=== PATIENT | female | born 1985 | race Caucasian/White ===

== ENCOUNTER 2023-01-24 06:57 | Outpatient (OUT) | payer BC, SELFPAY ==
--- NOTE | 2023-01-24 07:47 | ECG_ITS ---
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
[2023-01-24 09:20] LABS: Basophils Absolute Auto 0.1 10^3/uL (0.0-0.1); Basophils Percent Auto 0.7 % (0.2-2.0); Eosinophils Absolute Auto 0.2 10^3/uL (0.0-0.7); Eosinophils Percent Auto 1.8 % (0.9-7.0); Hematocrit 43.2 % (36.0-48.0); Hemoglobin 14.7 g/dL (12.0-16.0); Immature Granulocytes Abs Auto 0.05 10^3/uL (0.00-0.03); Immature Granulocytes Pct Auto 0.5 % (0.0-0.5); Lymphocytes Absolute Auto 3.6 10^3/uL (1.2-3.8); Lymphocytes Percent Auto 37.4 % (20.5-60.0); Mean Corpuscular Hemoglobin 31.5 pg (26.7-34.0); Mean Corpuscular Volume 92.7 fL (81.0-99.0); Mean Platelet Volume 9.9 fL (9.5-13.5); Monocytes Absolute Auto 0.7 10^3/uL (0.3-0.8); Monocytes Percent Auto 6.8 % (1.7-12.0); Neutrophils Absolute Auto 5.1 10^3/uL (1.4-6.5); Neutrophils Percent Auto 52.8 % (43.0-75.0); Platelet Count 290 10^3/uL (150-450); Red Blood Count 4.66 10^6/uL (4.20-5.40); Red Cell Distribution Width 12.9 % (11.0-15.0); White Blood Count 9.7 10^3/uL (4.0-11.0)
[2023-01-24 10:20] LABS: Anion Gap 10.2; BUN Creatinine Ratio 15.5; Calcium 9.5 mg/dL (8.5-10.1); Carbon Dioxide 28.5 mmol/L (21.0-32.0); Chloride 102 mmol/L (98-107); Estimated GFR (African America >60 (>=60); Estimated GFR (Non-African Ame >60 (>=60); Glucose 86 mg/dL (74-106); Potassium 3.7 mmol/L (3.5-5.1); Sodium 137 mmol/L (136-145)
== END 2023-01-24 06:58 | disposition home or self-care (01) ==
LOC: PST 07:00
PROVIDERS: PCP Family Medicine; Visit Provider Orthopaedic Surgery
DX: Z01.818 Encounter for other preprocedural examination (principal); Z01.812 Encounter for preprocedural laboratory examination; Z01.810 Encounter for preprocedural cardiovascular examination; S83.231A Complex tear of medial meniscus, current injury, right knee, initial encounter
CPT/HCPCS: 80048; 85025; 93005

== ENCOUNTER 2023-01-29 08:08 | Day surgery (SDC) | payer OTHER, BC, SELFPAY ==
[2023-01-24 08:43] VITALS: BP 128/85; PULSE 70; RESP 16; TEMP 36.4; O2SAT 96; BMI 45.3
[2023-01-29] VITALS (9 sets, daily range): BP systolic 137–165; BP diastolic 71–84; PULSE 58–67; RESP 13–20; TEMP 36.6; O2SAT 95–98; BMI 45.2
[2023-01-29] MEDS: LACTATED RINGER'S SOLUTION 1,000 ML 50 ML IV (08:42)
[2023-01-29 08:53] LABS: HCG Qualitative NEGATIVE (NEGATIVE)
[2023-01-29] MEDS: LIDOCAINE HCL 1%-EPINEPHRINE 1:100,000 20 ML MDV INJ (10:51)
[2023-01-29] MEDS: BUPIVACAINE HCL 0.5% PF 50 MG/10 ML VIAL 20 ML INJ (10:51)
[2023-01-29] MEDS: KETOROLAC TROMETHAMINE 30 MG/ML VIAL IVP (11:42)
--- NOTE | 2023-01-29 11:43 | P.ORPRC_ITS ---
Procedure Note Date of procedure: 01/29/23 Pre-op diagnosis: Right knee medial meniscus tear Procedure: After informed consent was obtained the patient brought to the operating room where a general anesthetic was administered. Exam under anesthesia the right knee revealed full range of motion and no instability. The right leg was prepped and draped in the usual sterile fashion. Diagnostic arthroscopy was performed through standard anterior medial and anterolateral arthroscopy portal s. Findings in the patellofemoral compartment included intact articular cartilage of the trochlear groove. Patella had focal grade I and II chondromalacia of the inferior pole of the patella without unstable articular cartilage flaps. Medial compartment there is a posterior horn medial meniscus tear which was debrided with arthroscopic biters and shaver back to stable edge. A 40% meniscectomy was performed. There was diffuse grade 2 and focal grade III chondromalacia of the medial femoral condyle with unstable articular cartilage flaps which was debrided with the arthroscopic shaver back to stable edge. In the notch the ACL and PCL were intact. In the lateral compartment the lateral meniscus was intact. Diffuse grade I and II chondromalacia lateral tibial plateau. Lateral femoral condyle articular cartilage was intact. Knee joint was drained of arthroscopy fluid. Portals were closed with absorbable suture. Joint was infiltrated with 20 mL 0.5% Marcaine plain and 10 mL 1% Xylocaine with epinephrine. Steri-Strips and a sterile dressing were placed. Patient was awakened and brought to the recovery room in stable condition. There were no intraoperative or immediate postoperative complications. Anesthesia: GETA (General LMA) Surgeon: Clint Gore Estimated blood loss (mL): 10 Pathology: none sent Condition: stable Disposition: PACU
== END 2023-01-29 12:20 | disposition home or self-care (01) ==
PROVIDERS: PCP Family Medicine; Visit Provider Orthopaedic Surgery
PROC: (CPT 29881; principal; 2023-01-29 09:30)
DX: S83.231A Complex tear of medial meniscus, current injury, right knee, initial encounter (principal); M22.41 Chondromalacia patellae, right knee; F17.210 Nicotine dependence, cigarettes, uncomplicated; I10 Essential (primary) hypertension; F32.A Depression, unspecified; F41.9 Anxiety disorder, unspecified; Z79.899 Other long term (current) drug therapy; Z79.890 Hormone replacement therapy; E66.01 Morbid (severe) obesity due to excess calories; Z68.42 Body mass index [BMI] 45.0-49.9, adult
CPT/HCPCS: 29881; 36415; 84703; J2704

== ENCOUNTER 2023-04-09 11:19 | Outpatient (OUT) | payer BC, SELFPAY ==
--- NOTE | 2023-04-09 11:30 | XR_ITS ---
The [address] [address] Patient Name: ESTRELLITA DEL CID MRN: [id number] date: 1985 Sex: F Assigned Patient Location: [facility] Current Patient Location: [facility] Accession/Order Number: [id number] Exam Date: 04/09/2023 11:39 Report Date: 04/09/2023 14:25 At the request of: ANDREW CHAVEZ Procedure: XR knee LT 2V EXAM: XR knee LT 2V HISTORY: Left Knee Pain COMPARISON: This study was compared to the prior x-ray dated 12/06/2015 The alignment is anatomical. There is no acute fracture or dislocation. Moderate tricompartmental degenerative changes of the left knee are noted. No significant soft tissue abnormality is noted. XR/XR knee LT 2V IMPRESSION: Moderate tricompartmental degenerative changes of the left knee. Electronically authenticated by: OSCAR FOUNTAIN Date: 04/09/2023 14:25
== END 2023-04-09 11:20 | disposition home or self-care (01) ==
LOC: RAD 11:22
PROVIDERS: PCP Family Medicine; Visit Provider Orthopaedic Surgery
DX: M25.562 Pain in left knee (principal)
CPT/HCPCS: 73560

== ENCOUNTER 2023-04-16 11:10 | Outpatient (OUT) | payer BC, SELFPAY ==
--- NOTE | 2023-04-16 11:15 | XR_ITS ---
The [address] [address] Patient Name: ESTRELLITA DEL CID MRN: [id number] date: 1985 Sex: F Assigned Patient Location: [facility] Current Patient Location: [facility] Accession/Order Number: [id number] Exam Date: 04/16/2023 11:45 Report Date: 04/16/2023 12:12 At the request of: ANDREW CHAVEZ Procedure: XR knee RT 4V EXAM: XR knee RT 4V HISTORY: Acute Pain Of Left Knee COMPARISON: None. TECHNIQUE: 4 views FINDINGS: Cortical irregularity of the lateral tibial plateau. Moderate degenerative change of the knee. Mild soft tissue swelling. XR/XR knee RT 4V IMPRESSION: Probable nondisplaced fracture of the lateral tibial plateau. Electronically authenticated by: JAIRON STARKEY Date: 04/16/2023 12:12
--- NOTE | 2023-04-16 14:50 | XR_ITS ---
The [address] [address] Patient Name: ESTRELLITA DEL CID MRN: [id number] date: 1985 Sex: F Assigned Patient Location: [facility] Current Patient Location: [facility] Accession/Order Number: [id number] Exam Date: 04/16/2023 14:51 Report Date: 04/16/2023 11:12 At the request of: ANDREW CHAVEZ Procedure: XR knee LT 4V EXAM: XR knee RT 4V HISTORY: Acute Pain Of Left Knee COMPARISON: None. TECHNIQUE: 4 views FINDINGS: Cortical irregularity of the lateral tibial plateau. Moderate degenerative change of the knee. Mild soft tissue swelling. XR/XR knee LT 4V IMPRESSION: Probable nondisplaced fracture of the lateral tibial plateau. Electronically authenticated by: JAIRON STARKEY Date: 04/16/2023 11:12
== END 2023-04-16 11:11 | disposition home or self-care (01) ==
LOC: RAD 11:10
PROVIDERS: PCP Family Medicine; Visit Provider Orthopaedic Surgery
DX: M25.562 Pain in left knee (principal)
CPT/HCPCS: 73564

== ENCOUNTER 2023-05-29 15:01 | Outpatient (OUT) | payer BC, SELFPAY ==
--- NOTE | 2023-05-29 15:12 | MR_ITS ---
[address] [address] Patient Name: ESTRELLITA DEL CID MRN: [id number] date: 1985 Sex: F Assigned Patient Location: MRI Current Patient Location: Accession/Order Number: [id number] Exam Date: 05/29/2023 15:20 Report Date: 05/30/2023 01:18 At the request of: ANDREW CHAVEZ Procedure: MR knee LT wo con EXAMINATION: MR knee LT wo con HISTORY: Left Knee Pain M25.562 ; no known injury COMPARISON: XR knee left 04/16/2023 TECHNIQUE: A complete multi-planar MRI was performed. FINDINGS: MEDIAL COMPARTMENT MEDIAL MENISCUS: Vertical tear, likely maceration of the posterior junction. CARTILAGE: Mild thinning; no visible defect. BONES: Large periarticular degenerative osteophytes. No fracture or marrow edema. MCL AND MEDIAL CAPSULE: Grade I sprain of the medial collateral ligament. LATERAL COMPARTMENT LATERAL MENISCUS: Evidence of myxoid degeneration without visible tear. CARTILAGE: Mild thinning; no visible defect. BONES: Large periarticular degenerative osteophytes. No fracture or marrow edema. LCL/POSTEROLAT COMPLEX: Normal lateral collateral ligament, fascicles, lateral capsule and ligaments. ANTERIOR COMPARTMENT PATELLA: Prominent periarticular degenerative osteophytes. No fracture. CARTILAGE: Moderate thinning with focal defects; no subchondral edema. TENDONS: Normal. EFFUSION: No joint effusion or loose bodies. ACL: Normal appearing ligament. PCL: Normal appearing ligament. MENISCOFEMORAL: Normal meniscofemoral ligaments. OTHER: Negative. MR/MR knee LT wo con IMPRESSION: 1. Medial meniscus posterior horn tear/maceration. 2. Mild strain medial collateral ligament. 3. Cartilage thinning throughout kidney; greatest involving the patella (grade III chondromalacia). 4. Tricompartmental prominent periarticular degenerative osteophytes. 5. No fracture with specific attention to the tibial plateau. Electronically authenticated by: ANDREW ZAIDI Date: 05/30/2023 01:18
== END 2023-05-29 15:02 | disposition home or self-care (01) ==
PROVIDERS: PCP Family Medicine; Visit Provider Orthopaedic Surgery
DX: M25.562 Pain in left knee (principal); S83.242A Other tear of medial meniscus, current injury, left knee, initial encounter
CPT/HCPCS: 73721

== ENCOUNTER 2024-01-04 16:14 | Outpatient (OUT) | payer BC, SELFPAY ==
[2024-01-04 17:01] LABS: Estimated Average Glucose 111 mg/dL; Glycohemoglobin A1C 5.5 % (4.5-6.2)
== END 2024-01-04 16:15 | disposition home or self-care (01) ==
LOC: LAB 16:18
PROVIDERS: PCP Family Medicine
DX: Z01.810 Encounter for preprocedural cardiovascular examination (principal); Z01.812 Encounter for preprocedural laboratory examination; R73.03 Prediabetes
CPT/HCPCS: 36415; 83036

== ENCOUNTER 2024-01-16 14:02 | Outpatient (OUT) | payer BC, SELFPAY ==
--- OUTSIDE RECORDS SUMMARY | 2024-01-16 14:07 | XMS_ITS | CCD ---
Author Organization [facility] Care Team Providers Care Community Service Technician Name Role Phone ANIKA PINO Attending Unavailable ANIKA PINO Consulting Unavailable ANIKA PINO Admitting Unavailable DR MASSIEL OSCAR Primary Care Unavailable MD Massiel Dodd Primary Care Pr ovider DO Jordy Wells Attending Provider [phone] Jordy Wells Attending Unavailable Jordy Wells Admitting Unavailable Massiel Dodd Primary Care Un available NAOMI JOE Referring Unavailable MASSIEL OSCAR Primary Care Unavailable NAOMI JOE Referring Unavailable MASSIEL OSCAR Primary Care Unavailable NAOMI JOE Referring Unavailable MASSIEL OSCAR Primary Care Unavailable ANGEL ARAIZA Attending Unavailable ANGEL ARAIZA Referring Unavailable ANGEL ARAIZA Attending Unavailable ANGEL ARAIZA Referring Unavailable ANGEL ARAIZA Referring Unavailable ANGEL ARAIZA Referring Unavailable ANGEL ARAIZA Attending Unavailable ANGEL ARAIZA Attending Unavailable JORDY WELLS Referring Unavailable MASSIEL OSCAR Attending Unavailable NAOMI JOE Referring Unavailable Medications Current Medications Medication Drug Class(es) Dates Sig (Normalized) Sig (Original) atorvastatin 10 mg oral tablet (2 sources) HMG-CoA Reductase Inhibitor Start: 11-26-19 24 take 10 mg by mouth once daily Atorvastatin Active 10 MG PO Daily November 26, 2023 12:00am hydroCHLOROthiazide 25 mg oral tablet (2 sources) Thiazide Diuretic Start: 11-26-19 24 take 25 mg by mouth once daily Hydrochlorothiazide Active 25 MG PO Daily November 26, 2023 12:00am levothyroxine sodium 0.088 mg oral tablet (2 sources) l-Thyroxine Start: 11-26-19 take 1 tablet by mouth once daily Levothyroxine (Synthroid) 88 mcg tablet Active 88 MCG PO Daily November 26, 2023 12:00am metoprolol tartrate 100 mg oral tablet (2 sources) beta-Adrenergic Ruthie Start: 11-26-19 take 100 mg by mouth twice daily Metoprolol Tartrate Active 100 MG PO Twice daily November 26, 2023 12:00am NIFEdipine 30 mg oral tablet (2 sources) Dihydropyridine Calcium Channel Ruthie Start: 11-26-19 24 Nifedipine Active 30 MG PO November 26, 2023 12:00am 24 hr oxybutynin chloride 10 mg extended release oral tablet (2 sources) Cholinergic Muscarinic Antagonist Start: 11-26-19 Oxybutynin Chloride Active MG PO November 26, 2023 12:00am Semaglutide (Weight Loss) (2 sources) Start: 11-26-19 inject 1 mg by subcutaneous injection every week Semaglutide (Weight Loss) (Parth) 0.25 mg/0.5 mL pen injector Active MG SUBCUT every week November 26, 2023 12:00am sertraline 100 mg oral tablet (2 sources) Serotonin Reuptake Inhibitor Start: 11-26-19 take 100 mg by mouth once daily Sertraline Active 100 MG PO Daily November 26, 2023 12:00am Problems Active Problems Problem Classification Problem Date Documented Da te Episodic/Chronic Disorders of lipid metabolism (2 sources) Hyperlipidemia; Translations: [Hyperlipidemia, unspecified] 11-26-2023 Chronic Essential hypertension (2 sources) Hypertensive disorder; Translations: [Essential (primary) hypertension] 11-26-2023 Chronic Headache; including migraine (1 source) Headache; including migraine; Translations: [HEADACHE UNSPECIFIED] Onset: 06-14-2021 Mood disorders (2 sources) Depressive disorder; Translations: [Depression] 11-26-2023 Chronic Osteoarthritis (2 sources) Unilateral primary osteoarthritis, right knee; Translations: [Unilateral primary osteoarthritis, left knee] Onset: 10-15-2023 Chronic Other and unspecified benign neoplasm (2 sources) Hemangioma of liver; Translations: [Hemangioma of intra-abdominal structures] 11-26-2023 Episodic Other and unspecified benign neoplasm (1 source) Hemangioma of intra-abdominal structures; Translations: [Hemangioma of intra-abdominal structures] 11-26-2023 Episodic Other liver diseases (2 sources) Lesion of liver; Translations: [Liver disease, unspecified] 11-26-2023 Chronic Other liver diseases (2 sources) Steatosis of liver; Translations: [Fatty (change of) liver, not elsewhere classified] 11-26-2023 Chronic Other liver diseases (2 sources) Fatty (change of) liver, not elsewhere classified; Translations: [Other chronic nonalcoholic liver disease] Onset: 11-26-2023 11-26-2023 Chronic Other liver diseases (1 source) Elevated liver enzymes level; Translations: [Abnormal levels of other serum enzymes] 11-26-2023 Episodic Other liver diseases (1 source) Abnormal levels of other serum enzymes; Translations: [Other nonspecific abnormal serum enzyme levels] 11-26-2023 Episodic Other lower respiratory disease (1 source) Shortness of breath; Translations: [SHORTNESS OF BREATH] Onset: 06-14-2021 Episodic Other non-traumatic joint disorders (1 source) Pain in right knee; Translations: [Pain in right knee] Onset: 01-07-2024 Episodic Other non-traumatic joint disorders (1 source) Pain in left knee; Translations: [Pain in left knee] Onset: 10-15-2023 Episodic Thyroid disorders (2 sources) Hypothyroidism; Translations: [Hypothyroidism, unspecified] 11-26-2023 Chronic Unclassified (3 sources) CONTACT W/AND (SUSP) EXPOS COVID-19; Translations: [CONTACT W/AND (SUSP) EXPOS COVID-19] Onset: 06-14-2021 Unclassified (1 source) COUGH, UNSPECIFIED; Translations: [COUGH, UNSPECIFIED] Onset: 06-14-2021 Past or Other Problems Problem Classification Problem Date Documented Da te Episodic/Chronic Unclassified (1 source) CONTACT W/AND (SUSP) EXPOS COVID-19; Translations: [CONTACT W/AND (SUSP) EXPOS COVID-19] Onset: 06-09-2021 Results Test Name Value Interpretation Reference Range Facility XR CHEST 2 VIEWSon 4 XR CHEST 2 VIEWS TITLE OF EXAM: XR - CHEST 2 VIEWS REASON FOR EXAM: Pre-op, no current complaints TECHNIQUE: 2 radiographs of the chest. COMPARISON: None FINDINGS: Normal lung expansion. No diffuse or focal pulmonary abnormality. No significant effusion or pneumothorax. The cardiomediastinal silhouette is normal. No acute osseous or upper abdominal abnormality. IMPRESSION: No radiographically apparent cardiopulmonary abnormality. DICTATED ON: 01/10/2024 1:36 PM This report has been electronically signed in approved by the interpreting radiologist. Electronically Signed Leeroy Lovelace M.D. 2024-01-10 13:36:22 Normal Not Available MR ABDOMEN W AND WO CONTRAST on 12-28-2023 MR ABDOMEN W AND WO CONTRAST EXAMINATION: MR ABDOMEN W AND WO CONTRAST HISTORY: Hemangioma of intra-abdominal structures. COMPARISON: MRI of the liver September 26, 2023 TECHNIQUE: Multiplanar multisequence MRI of the abdomen was performed without and with contrast FINDINGS: Again identified is is loss of signal of the liver on in/out of phase imaging compatible with hepatic steatosis. A few small scattered areas of focal fatty sparing are again identified. The liver is enlarged measuring approximately 21.5 cm in craniocaudal length. Stable 1.5 cm enhancing structure within the right lobe of the liver most likely representing a flash filling hemangioma. The liver measures approximately 22 cm in craniocaudal length. A 7 mm gallbladder polyp is again identified within the otherwise unremarkable gallbladder. The spleen, stomach, pancreas, and adrenal glands are within normal limits. The kidneys enhance uniformly. Tiny left renal cyst. No hydronephrosis. No upper abdominal lymphadenopathy or free fluid. No enhancing bone lesion. IMPRESSION: Stable 1.5 cm enhancing lesion of the right lobe most likely representing a flash filling hemangioma. Consider follow-up MRI with contrast in 6-12 months. Hepatomegaly and hepatic steatosis. ELECTRONICALLY SIGNED BY: Armand Rosales, DO Normal Not Available Comment on above: Order Comment: Atten tion: Liver ANDREW Antinuclear Antibodieson 11-26-2023 Antinuclear Abs, IFA Negative Normal . [facility] Comment on above: Result Comment: Nega tive <1:80 Borderline 1:80 Positive >1:80 ICAP nomenclature: AC-0 For more information about Hep-2 cell patterns use ANApatterns.org, the official website for the International Consensus on Antinuclear Antibody (ANDREW) Patterns (ICAP). Performed at: [facility] [id number] Physical Therapist Clinic Director: En Camacho PhD, Phone: [phone] Performed By: #### H BSAB, HCV RX PCR, L-K MICRO, HCBIGM, HAABT, IGG, ALPHA PHEN, HBSAG, ANDREW, CERULOP, SMAB, MITOM2, HBCAB, HAAB, HEMOCHROM #### [facility] , #### [place] #### [facility] [address] Vfkpl-3-Dtirbiiucto Phenotyp zoila 11-26-2023 Alpha 1 Anti-Trypsin 138 mg/dL Normal 100-188 [facility] Comment on above: Performed By: #### H BSAB, HCV RX PCR, L-K MICRO, HCBIGM, HAABT, IGG, ALPHA PHEN, HBSAG, ANDREW, CERULOP, SMAB, MITOM2, HBCAB, HAAB, HEMOCHROM #### [facility] , #### MARSHALL #### [facility] [address] Phenotype (P1) MM Normal . [facility] Comment on above: Result Comment: MM Phenotype is considered to be normal , producing normal serum levels of kfsvg-2-agnxrlqp inhibitor and not associated with clinical disease. Associated A1A total serum levels in other phenotypes and their incidence in the general population are shown in the table below. Phenotype Population % function A-1-AT Conc.* Incidence % compared to MM (Typical Range) MM 86.5% 100% (96 - 189) MS 8.0% 86% (83 - 161) MZ 3.9% 61% (60 - 111) FM 0.4% 100% (93 - 191) SZ 0.3% 41% (42 - 75) SS 0.1% 64% (62 - 119) ZZ 0.05% 19% (16 - 38) FS 0.05% 70% (70 - 128) FZ Unknown 46% (44 - 88) FF Unknown Unknown *A-1-AT concentration in the homozygous MM phenotype is taken as the reference normal. Percent deficiency in each phenotype is reported relative to this reference. Ranges used to confirm phenotype. Performed at: [facility] [id number] Physical Therapist Clinic Director: En Camacho PhD, Phone: [phone] Performed at: [facility] [id number] Physical Therapist Clinic Director: Mabel Mays MD, Phone: [phone] Performed By: #### H BSAB, HCV RX PCR, L-K MICRO, HCBIGM, HAABT, IGG, ALPHA PHEN, HBSAG, ANDREW, CERULOP, SMAB, MITOM2, HBCAB, HAAB, HEMOCHROM #### [facility] , #### MARSHALL #### [facility] [address] [place] [address] Ceruloplasminon 11-26-2023 Ceruloplasmin 31.6 mg/dL Normal 19.0-39.0 [facility] Comment on above: Result Comment: Perf ormed at: [facility] [id number] Physical Therapist Clinic Director: En Camacho PhD, Phone: [phone] PERFORMED BY: [place] [address] PATHOLOGIST DISPOSAL PLANT OPERATOR CAITIE QUINTANILLA M.D. Performed By: #### H BSAB, HCV RX PCR, L-K MICRO, HCBIGM, HAABT, IGG, ALPHA PHEN, HBSAG, ANDREW, CERULOP, SMAB, MITOM2, HBCAB, HAAB, HEMOCHROM #### [facility] , #### MARSHALL #### [facility] [address] [place] [address] Ferritin [Mass/volume] in Se rum or PlasmaOrdered By: Jordy Wells on 11-26-2023 Ferritin [Mass/Vol] 137.3 ng/mL Normal 11.0-306.8 [facility] Comment on above: Result Comment: PERF ORMED BY: [place] [address] PATHOLOGIST DISPOSAL PLANT OPERATOR CAITIE QUINTANILLA M.D. Performed By: #### H BSAB, HCV RX PCR, L-K MICRO, HCBIGM, HAABT, IGG, ALPHA PHEN, HBSAG, ANDREW, CERULOP, SMAB, MITOM2, HBCAB, HAAB, HEMOCHROM #### [facility] , #### MARSHALL #### [address] Hep C Ab wRfx to Qnt PCRon 0 11-26-2023 Hepatitis C Virus Antibody Non-Reactive Normal Non Reactive [facility] Comment on above: Performed By: #### H BSAB, HCV RX PCR, L-K MICRO, HCBIGM, HAABT, IGG, ALPHA PHEN, HBSAG, ANDREW, CERULOP, SMAB, MITOM2, HBCAB, HAAB, HEMOCHROM #### [facility] , #### MARSHALL #### [address] Interpretation Hepatitis C Normal . [facility] Comment on above: Result Comment: Not infected with HCV unless early or acute infection is suspected (which may be delayed in an immunocompromised individual), or other evidence exists to indicate HCV infection. Performed By: #### H BSAB, HCV RX PCR, L-K MICRO, HCBIGM, HAABT, IGG, ALPHA PHEN, HBSAG, ANDREW, CERULOP, SMAB, MITOM2, HBCAB, HAAB, HEMOCHROM #### [facility] , #### MARSHALL #### [address] Hepatitis A Antibody IgMon 0 11-26-2023 Hepatitis A Antibody IgM Negative Normal Negative [facility] Comment on above: Performed By: #### H BSAB, HCV RX PCR, L-K MICRO, HCBIGM, HAABT, IGG, ALPHA PHEN, HBSAG, ANDREW, CERULOP, SMAB, MITOM2, HBCAB, HAAB, HEMOCHROM #### [facility] , #### MARSHALL #### [address] Hepatitis A Antibody Totalon 11-26-2023 Hepatitis A Antibody Total Positive Critically abnormal Negative [facility] Comment on above: Result Comment: Comm ent: The HAV total antibody assay detects both IgG and IgM but does not differentiate between them. A negative result suggests susceptibility to infection. A positive result could be due to vaccination, previously resolved infection or active infection. Testing for HAV IgM should be performed if active HAV infection is suspected. [facility] offers profiles that will automatically reflex positive HAV total antibody results to IgM (e.g., panel #[id number] HAV Antibody w/ Rfx). Performed By: #### H BSAB, HCV RX PCR, L-K MICRO, HCBIGM, HAABT, IGG, ALPHA PHEN, HBSAG, ANDREW, CERULOP, SMAB, MITOM2, HBCAB, HAAB, HEMOCHROM #### [facility] , #### MAR[place]ALL #### [address] Hepatitis B Core Antibodyon 11-26-2023 Hepatitis B Core Antibody Negative Normal Negative [facility] Comment on above: Performed By: #### H BSAB, HCV RX PCR, L-K MICRO, HCBIGM, HAABT, IGG, ALPHA PHEN, HBSAG, ANDREW, CERULOP, SMAB, MITOM2, HBCAB, HAAB, HEMOCHROM #### [facility] , #### MARSHALL #### [address] Hepatitis B Core Antibody Ig Mon 11-26-2023 Hepatitis B Core Antibody IgM Negative Normal Negative [facility] Comment on above: Result Comment: Perf ormed at: [address] [id number] Physical Therapist Clinic Director: En Camacho PhD, Phone: [phone] Performed By: #### H BSAB, HCV RX PCR, L-K MICRO, HCBIGM, HAABT, IGG, ALPHA PHEN, HBSAG, ANDREW, CERULOP, SMAB, MITOM2, HBCAB, HAAB, HEMOCHROM #### [facility] , #### MARSHALL #### [address] Hepatitis B Surface Antibody on 11-26-2023 Hepatitis B Surface Antibody Non-Reactive Normal . [facility] Comment on above: Result Comment: Non Reactive: Inconsistent with immunity, less than 10 mIU/mL Reactive: Consistent with immunity, greater than 9.9 mIU/mL Performed By: #### H BSAB, HCV RX PCR, L-K MICRO, HCBIGM, HAABT, IGG, ALPHA PHEN, HBSAG, ANDREW, CERULOP, SMAB, MITOM2, HBCAB, HAAB, HEMOCHROM #### [facility] , #### MARSHALL #### [address] Hepatitis B Surface Antigeno n 11-26-2023 HBsAg Screen Negative Normal Negative [facility] Comment on above: Result Comment: PERF ORMED BY: [place] [address] PATHOLOGIST DISPOSAL PLANT OPERATOR CAITIE QUINTANILLA M.D. Performed By: #### H BSAB, HCV RX PCR, L-K MICRO, HCBIGM, HAABT, IGG, ALPHA PHEN, HBSAG, ANDREW, CERULOP, SMAB, MITOM2, HBCAB, HAAB, HEMOCHROM #### [facility] , #### MARSHALL #### [address] Hereditary Hemochromatosis,D Ovidio 11-26-2023 Hereditary Hemochromatosis Normal . [facility] Comment on above: Result Comment: Resu lts: c.845G>A (p.Iql611Vil) - Not Detected c.187C>G (p.Vhv38Nwp) - Detected, heterozygous c.193A>T (p.Sbe66Yql) - Not Detected Not associated with increased risk to develop clinical symptoms of Hereditary Hemochromatosis. In symptomatic individuals, other causes of iron overload should be evaluated. See Additional Information and Comments. Additional Clinical Information: Hereditary hemochromatosis (HFE related) is an autosomal recessive iron storage disorder. Patients may have a genetic diagnosis of hereditary hemochromatosis and never show clinical symptoms. Clinical symptoms typically appear between 40 to 60 years in males and after menopause in females. Signs and symptoms may include organ damage, primarily in the liver, risk for hepatocellular carcinoma, diabetes, and heart disease due to iron accumulation. Life expectancy may be decreased in individuals who develop cirrhosis. Treatment for clinically symptomatic individuals may include therapeutic phlebotomy. Liver transplant may be used to treat end stage liver failure. For preventive care, monitoring for iron overload is recommended for patients who are homozygous for c.845G>A (p.Dhd875Qai) and have yet to experience clinical symptoms. Comments: The most common HFE variants associated with hereditary hemochromatosis are c.845G>A (p.Juk156Hjv), c.187C>G (p.Olx25Qur), c.193A>T (p.Mnq82Bgd). While patients homozygous for c.845G>A (p.Bkz044Lzf) are the most likely to present clinical symptoms, less than 10% develop clinically significant iron overload with tissue and organ damage. Genetic counseling is recommended to discuss the potential clinical implications of positive results, as well as recommendations for testing family members. Genetic Coordinators are available for health care providers to discuss results at [phone]). Test Details: Three variants analyzed: c.845G>A (p.Mjf044Uyy), commonly referred to as C282Y c.187C>G (p.Ukn92Xgv), commonly referred to as H63D c.193A>T (p.Erc23Rwp), commonly referred to as S65C Methods/Limitations: DNA Analysis of the HFE gene (NM_[id number]) was performed by PCR amplification followed by restriction enzyme digestion analyses. Results must be combined with clinical information for the most accurate interpretation. Molecular- based testing is highly accurate, but as in any laboratory test, diagnostic errors may occur. False positive or false negative results may occur for reasons that include genetic variants, blood transfusions, bone marrow transplantation, somatic or tissue-specific mosaicism, mislabeled samples, or erroneous representation of family relationships. This test was developed and its performance characteristics determined by [employer]. It has not been cleared or approved by the Food and Drug Administration. References: Alirio BR, Pato PC, Lula KV, Alfred LW, Elly ; [place] [employer] for [employer] Liver Diseases. Diagnosis and management of hemochromatosis: 2011 practice guideline by the [place] [employer] the [employer] Liver Diseases. Hepatology. 2011 Dec;54(1):328-43. doi: 10.1002/hep.95847. PMID: 49528085; PMCID: KNC1547651. Kelly G, Tera P, Crys DW, Holly H, Joann O, Tony S, Sarmad I, Da M, Cheikh S. [facility] best practice guidelines for the molecular genetic diagnosis of hereditary hemochromatosis (HH). Eur J Hum Patricia. 2016 Sep;24(4):479-95. doi: 10.1038/ejhg.2015.128. Epub 2014Dec 30. PMID: 85761252; PMCID: [id number]. Performed By: #### H BSAB, HCV RX PCR, L-K MICRO, HCBIGM, HAABT, IGG, ALPHA PHEN, HBSAG, ANDREW, CERULOP, SMAB, MITOM2, HBCAB, HAAB, HEMOCHROM #### [facility] , #### MARSHALL #### [facility] [address] Reviewed by: Normal . [facility] Comment on above: Result Comment: Tech nical Component performed at [facility] RT Professional Component performed by: Delores Heath, Ph.D., FACMG Director, Molecular Genetics [address] [place] [address] [facility] [address] Performed at: [facility] RTP [facility] [place], [place] [id number] Physical Therapist Clinic Director: Scar Cruz [facility], Phone: [phone] PERFORMED BY: [place] [address] PATHOLOGIST DISPOSAL PLANT OPERATOR CAITIE QUINTANILLA M.D. Performed By: #### H BSAB, HCV RX PCR, L-K MICRO, HCBIGM, HAABT, IGG, ALPHA PHEN, HBSAG, ANDREW, CERULOP, SMAB, MITOM2, HBCAB, HAAB, HEMOCHROM #### [facility] , #### MARSHALL #### [facility] [address] [place] [address] Immunoglobulin Benentt 4 Immunoglobulin G 1168 mg/dL Normal [id number] [facility] Comment on above: Result Comment: Perf ormed at: CB - [facility] [address], [place], [place] [id number] Physical Therapist Clinic Director: En Camacho PhD, Phone: [phone] Performed By: #### H BSAB, HCV RX PCR, L-K MICRO, HCBIGM, HAABT, IGG, ALPHA PHEN, HBSAG, ANDREW, CERULOP, SMAB, MITOM2, HBCAB, HAAB, HEMOCHROM #### [facility] , #### MAR[place]ALL #### [address] Liver-Kidney Microsomal Abon 11-26-2023 Liver-Kidney Microsomal Ab 1.1 Normal 0.0-20.0 [facility] Comment on above: Result Comment: Nega tive 0.0 - 20.0 Equivocal 20.1 - 24.9 Positive >24.9 LKM type 1 antibodies are detected in patients with autoimmune hepatitis type 2 and in up to 8% of patients with chronic HCV infection. Performed at: [address] [id number] Physical Therapist Clinic Director: En Camacho PhD, Phone: [phone] Performed By: #### H BSAB, HCV RX PCR, L-K MICRO, HCBIGM, HAABT, IGG, ALPHA PHEN, HBSAG, ANDREW, CERULOP, SMAB, MITOM2, HBCAB, HAAB, HEMOCHROM #### [facility] , #### MAR[place]ALL #### [address] Mitochondrial (M2) Antibodyo n 11-26-2023 Mitochondrial (M2) Antibody <20.0 Normal 0.0-20.0 [facility] Comment on above: Result Comment: Nega tive 0.0 - 20.0 Equivocal 20.1 - 24.9 Positive >24.9 Mitochondrial (M2) Antibodies are found in 90-96% of patients with primary biliary cirrhosis. Performed By: #### H BSAB, HCV RX PCR, L-K MICRO, HCBIGM, HAABT, IGG, ALPHA PHEN, HBSAG, ANDREW, CERULOP, SMAB, MITOM2, HBCAB, HAAB, HEMOCHROM #### [facility] , #### MARSHALL #### [facility] [address] [place] [id number] [facility] Smooth Muscle Antibodyon Smooth Muscle Antibody 8 Normal 0-19 [facility] Comment on above: Result Comment: Nega tive 0 - 19 Weak positive 20 - 30 Moderate to strong positive >30 Actin Antibodies are found in 52-85% of patients with autoimmune hepatitis or chronic active hepatitis and in 22% of patients with primary biliary cirrhosis. Performed By: #### H BSAB, HCV RX PCR, L-K MICRO, HCBIGM, HAABT, IGG, ALPHA PHEN, HBSAG, ANDREW, CERULOP, SMAB, MITOM2, HBCAB, HAAB, HEMOCHROM #### [facility] , #### MARSHALL #### [facility] [address] [place] [id number] [facility] MR ABDOMEN W AND WO CONTRAST on 09-26-2023 MR ABDOMEN W AND WO CONTRAST EXAMINATION: MR ABDOMEN W AND WO CONTRAST HISTORY: Liver disease. Hepatomegaly. COMPARISON: Ultrasound September 11, 2023 TECHNIQUE: Multiplanar multisequence MRI of the liver was performed without and with contrast FINDINGS: There is loss of signal of the liver on in/out of phase imaging compatible with hepatic steatosis. There are a few small scattered areas of sparing of loss of signal compatible with areas of focal fatty sparing. There is a 1.5 cm enhancing structure within the right lobe of the liver that demonstrates persistent enhancement on more delayed images matching that of signal of blood pool, most likely a flash filling hemangioma. The liver measures approximately 22 cm in craniocaudal length. 7 mm gallbladder polyp is again identified. The gallbladder is otherwise within normal limits. The spleen, stomach, pancreas, and adrenal glands are within normal limits. The kidneys enhance uniformly. Tiny left renal cyst. No hydronephrosis. No upper abdominal lymphadenopathy or free fluid. No enhancing bone lesion. IMPRESSION: Hepatomegaly and hepatic steatosis with areas of focal fatty sparing. 1.5 cm enhancing lesion of the right lobe of the liver most likely a flash filling hemangioma. Consider follow-up MRI in 3 months to ensure stability. 7 mm gallbladder polyp. ELECTRONICALLY SIGNED BY: Armand Rosales, DO Normal Not Available US LIVERon 09-07-2023 US LIVER EXAMINATION: US LIVE R HISTORY: lesion noted on imaging COMPARISON: Renal ultrasound September 04, 2023 TECHNIQUE: Ultrasound evaluation was performed of the right upper quadrant of the abdomen FINDINGS: Increased echogenicity of the liver. Normal contour of the liver. Hypoechoic lesions of the liver identified including a 2.2 x 2.3 x 1.6 cm hypoechoic lesion of the left lobe and a 2.1 x 1.9 x 1.5 cm hypoechoic lesion of the right lobe. No Intermatic biliary dilatation. Liver length measured at approximately 21.4 cm. Portal vein is patent. The gallbladder is physiologically distended. No cholelithiasis or pericholecystic fluid. And echogenic focus along the wall of the gallbladder measures 0.7 x 0.4 x 0.3 cm and likely represents a gallbladder polyp. Gallbladder wall thickness is normal measured at approximately 2 mm. Common bile duct is normal measuring approximately 5 mm in diameter. No overt abnormality of the pancreas. IMPRESSION: Hypoechoic lesions of the liver are nonspecific. Multiphase CT or MRI of the liver with contrast is recommended to further evaluate. Hepatic steatosis and hepatomegaly. 7 mm gallbladder polyp. ELECTRONICALLY SIGNED BY: Armand Rosales, DO Normal Not Available US RENAL COMPLETEon 09-04-19 US RENAL COMPLETE US RENAL COMPLETE : 09/04/2023 2:42 PM CLINICAL HISTORY: incontinence. COMPARISON: None available. TECHNIQUE: Transabdominal ultrasound of the kidneys was performed. FINDINGS: Both kidneys appear normal in size, position and morphology without significantly increased echogenicity. The corticomedullary junctions are maintained. There is no hydronephrosis, abnormal perinephric collections, visualized nephrolithiasis, solid or cystic renal masses. The right kidney measures approximately 11.6 x 6.0 x 5.1 cm. The left kidney measures approximately 12.4 x 6.5 x 6.6 cm. The prevoid bladder measures 229 cc. The post void bladder measures 3.6 cc. Bilateral jets are visualized. No focal mass or bladder wall thickening is seen. In the right lobe of the liver a 1.7 x 1.6 x 1.2 cm hypoechoic area is seen. IMPRESSION: NEGATIVE LIMITED RENAL ULTRASOUND. A hypoechoic area is seen in the right lobe of the liver. Recommend ultrasound of the liver for further evaluation. ELECTRONICALLY SIGNED BY: Georgenna Ari, DO Normal Not Available BI MAMMOGRAM SCREENING TOMOS ALFREDO BILATERALon 08-23-2023 BI MAMMOGRAM SCREENING TOMOSYNTHESIS BILATERAL This is a summary report. The complete report is available in the patient's medical record. If you cannot access the medical record, please contact the sending organization for a detailed fax or copy. EXAMINATION: BI MAMMOGRAM SCREENING TOMOSYNTHESIS BILATERAL CLINICAL HISTORY:screening COMPARISON: There are no previous mammograms available for comparison. RESULT: Digital mammography and 3D tomosynthesis of bilateral breasts was performed. Density: Scattered fibroglandular density [2] There is no suspicious mass, asymmetry, architectural distortion, or calcification. IMPRESSION: BIRADS 1 - Negative Follow-up: Routine Screening Mamm Board Certified Radiologists. Accredited by the ACR and FDA. MAMMOGRAPHY IS VERY IMPORTANT TO YOUR HEALTH. THE [employer] GUIDELINES RECOMMEND THAT WOMEN 40 YEARS OF AGE AND OLDER SHOULD HAVE A MAMMOGRAM EVERY YEAR. A REMINDER LETTER WILL BE SENT AT THE APPROPRIATE TIME. THIS FACILITY UTILIZES A REMINDER SYSTEM TO ENSURE ALL PATIENTS RECEIVE REMINDER NOTIFICATIONS AT THE APPROPRIATE TIME BASED ON THE RECOMMENDATIONS OF THIS EXAM. THIS INCLUDES REMINDERS FOR ROUTINE SCREENING MAMMOGRAMS, DIAGNOSTIC MAMMOGRAMS IN WHICH THE PATIENT IS ASKED TO RETURN FOR ADDITIONAL VIEWS, OR OTHER BREAST IMAGING INTERVENTIONS WHEN APPROPRIATE. THE PATIENT WILL BE PLACED IN THE APPROPRIATE REMINDER SYSTEM INCLUDING A REMINDER AT THE APPROPRIATE TIME FOR ANY PENDING ADDITIONAL VIEWS. TRANSCRIBED BY: ELECTRONICALLY SIGNED BY: Elieser Kincaid MD Normal Not Available XR Shoulder Complete Right*o n 10-14-2021 XR Shoulder Complete Right* FINDINGS: The acromion is down-sloping. Mild osteophyte formation involves the AC joint. No fracture or dislocation or rotator cuff calcification is seen. Upper chest is clear. IMPRESSION: Mild arthritis, no AC separation or fracture. Report reported and signed by Elieser Kincaid on 10/14/[address] [facility] Specialist Covid-19 PCR (CVDTB)on 05-25 SARS-CoV-2 (COVID-19) RNA AFSANEH+probe Ql (Unsp spec) Not detected Normal NOT DETECTED [facility] Comment on above: Result Comment: This test is not yet approved or cleared by the [place] FDA. When there are no FDA-approved or cleared tests available, and other criteria are met, FDA can make tests available under an emergency access mechanism called an Emergency Use Authorization (EUA). The EUA for this test is supported by the Clarity [employer] of Health and Human Service's (HHS's) declaration that circumstances exist to justify the emergency use of in vitro diagnostics for the detection and/or diagnosis of the virus that causes COVID-19. This EUA will remain in effect (meaning this test can be used) for the duration of the COVID-19 declaration justifying emergency of IVDs, unless it is terminated or revoked by FDA (after which the test may no longer be used). When diagnostic testing is negative, the possibility of a false negative should be considered in the context of a patient's recent exposures and the presence of clinical signs and symptoms consistent with SARS-CoV-2. Performed By: #### [facility] #### [facility] Laboratory [address] [place] [address] Dr. Frank Webb Vital Signs Date Time Vital Sign Value Performing Clinician Faci lity 11-26-2023 12:43-0400 Body height 175.26 cm [facility] 11-26-2023 12:43-0400 Body mass index (BMI) [Ratio] 50.2 kg/m2 [facility] 11-26-2023 12:43-0400 Body weight 154.22 kg [facility] 11-26-2023 12:43-0400 Respiratory rate 18 /min [facility] Encounters Encounter Date Encounter Type Care Provider Facility Start: 01-10-2024 End: 01-10-2024 ambulatory NAOMI JOE Not Available Start: 01-10-2024 End: 01-10-2024 ambulatory MASSIEL OSCAR Not Available Start: 01-07-2024 ambulatory NAOMI JOE [facility] Start: 12-28-2023 End: 12-28-2023 ambulatory JORDY WELLS Not Available Start: 12-14-2023 End: 12-14-2023 ambulatory ANGEL ARAIZA Not Available Start: 11-26-2023 End: 11-26-2023 ambulatory MD Massiel Oscar Work Phone: [facility] Work Phone: Start: 11-26-2023 End: 11-26-2023 Patient encounter procedure [facility] Work Phone: Start: 10-24-2023 End: 11-24-2023 ambulatory NAOMI Reza spital Start: 10-23-2023 End: 10-23-2023 ambulatory ANGEL KAMPFER Not Available Start: 10-15-2023 End: 10-24-2023 ambulatory NAOMI Reza spital Start: 09-26-2023 End: 09-26-2023 ambulatory ANGEL KAMPFER Not Available Start: 09-20-2023 Non-patient / Non-visit [facility] Gastroenterology Work Phone: Start: 09-11-2023 End: 09-11-2023 ambulatory ANGEL KAMPFER Not Available Start: 09-04-2023 End: 09-04-2023 ambulatory ANGEL KAMPFER Not Available Start: 09-03-2023 End: 09-03-2023 ambulatory ANGEL KAMPFER Not Available Start: 08-23-2023 End: 08-23-2023 ambulatory ANGEL KAMPFER Not Available Start: 08-10-2023 End: 08-10-2023 ambulatory ANGEL KAMPFER Not Available Start: 06-09-2021 End: 06-09-2021 ambulatory ANIKA PINO Facility: Plan of Treatment Date Care Activity Detail Author Start: 11-26-2023 Actin smooth muscle IgG Ab [Units/volume] in Serum [facility] Start: 11-26-2023 Ceruloplasmin [Mass/ volume] in Serum or Plasma [facility] Start: 11-26-2023 Hepatitis A virus Ab [Presence] in Serum by Immunoassay [facility] Start: 11-26-2023 Hepatitis A virus an tibody, IgM type [facility] Start: 11-26-2023 Hepatitis B core ant ibody measurement [facility] Start: 11-26-2023 Hepatitis B core ant ibody measurement, IgM type [facility] Start: 11-26-2023 Hepatitis B virus shin rface Ab [Presence] in Serum [facility] Start: 11-26-2023 IgG [Mass/volume] in Serum or Plasma [facility] Start: 11-26-2023 Lipoprotein a [Moles /volume] in Serum or Plasma [facility] Start: 11-26-2023 Mitochondria M2 IgG Ab [Units/volume] in Serum [facility] Start: 11-26-[address] [facility] Alpha 1 antitrypsin [Mass/volume] in Serum or Plasma [facility] Alpha 1 antitrypsin phenotyping [Identifier] in Serum or Plasma by Immunofixation [facility] Hepatitis B virus shin rface Ag [Presence] in Serum or Plasma by Immunoassay [facility] Hepatitis C virus Ig G Ab [Presence] in Serum or Plasma by Immunoassay [facility] HFE gene mutations f ound [Identifier] in Blood or Tissue by Molecular genetics method Nominal [facility] Homogenous nuclear A b pattern [Titer] in Serum [facility] Nuclear Ab [Titer] in Serum [facility] Payers Date Payer Category Payer Self-pay 2022 Unknown [id number] 1985 Unknown [id number] 2.16.84 0.1.905245.3.579.2.593 1985 Unknown [id number] 2.16.8 40.1.389865.3.579.2.1286 1983 Unknown [id number] 2.16.8 40.1.162947.3.579.2.1286 1983 Unknown [id number] 2.16.8 40.1.481801.3.579.2.1286 1983 Unknown [id number] 2.16.84 0.1.006821.3.579.2.1259 1983 Unknown [id number] 2.16.84 0.1.890583.3.579.2.1259 1983 Unknown [id number] 2.16.84 0.1.667677.3.579.2.1259 1983 Unknown [id number] 2.16.84 0.1.236148.3.579.2.1259 1983 Unknown [id number] 2.16.84 0.1.398017.3.579.2.1259 1983 Unknown [id number] 2.16.84 0.1.656683.3.579.2.1258 1983 Unknown [id number] 2.16.84 0.1.564647.3.579.2.9 1983 Unknown [id number] 2.16.84 0.1.115651.3.579.2.1258 1983 Unknown [id number] 2.16.84 0.1.484088.3.579.2.1258 1983 Unknown [id number] 2.16.84 0.1.943785.3.579.2.1258 1983 Unknown [id number] 2.16.84 0.1.818902.3.579.2.9 1983 Unknown [id number] 2.16.84 0.1.600907.3.579.2.1258 1983 Unknown [id number] 2.16.84 0.1.755895.3.579.2.1258 1983 Unknown [id number] 2.16.84 0.1.222377.3.579.2.1258 1983 Unknown [id number] 2.16.84 0.1.200287.3.579.2.9 1983 Unknown [id number] 2.16.84 0.1.972467.3.579.2.1258 1983 Unknown [id number] 2.16.84 0.1.359332.3.579.2.9 1983 Unknown [id number] 2.16.84 0.1.853847.3.579.2.1258 1983 Unknown [id number] 2.16.84 0.1.644175.3.579.2.9 1983 Unknown [id number] 2.16.84 0.1.094402.3.579.2.1258 1983 Unknown [id number] 2.16.84 0.1.248953.3.579.2.1259 1983 Unknown [id number] 2.16.84 0.1.179611.3.579.2.1259 1959 Unknown [id number] Unknown [id number] 2.16.8 40.1.062495.3.579.2.531 Social History Date Type Detail Facility Start: 11-26-2023 Tobacco smoking stat [facility] Ex-smoker (finding) [facility] Start: 1985 Sex Assigned At Female F [facility] Evaluation note Note Date & Type Note Facility Evaluation note No assessment information availa ble [facility] Work Phone: Evaluation note Note Date & Type Note Facility Evaluation note Diagnosis Onset Date Elevated liver enzymes acute Fatty liver acute Hemangioma of liver acute [facility] Work Phone: Summary Purpose Family History No Family History Records Found Relationship Condition Age at Onset Recorded Date/T laney father Hypertension Unknown Advance Directives No Advanced Directives Records Found Advance Directive Response Recorded Date/ Time Advance Directives No September 26 3:48pm Chief Complaint and Reason for Visit Chief Complaint Ref: Kempfer Liver l esion, hepatomegaly Chief Complaint Ref: Kempfer Liver l esion, hepatomegaly K76.0 Reason for Visit Elevated liver enzym es Fatty liver Hemangioma of liver Additional Source Comments INFORMATION SOURCE (unrecogn ized section and content) DATE CREATED AUTHOR 06/15/2021 [facility] DATE CREATED AUTHOR AUTHOR'S ORGANIZ ATION 10/16/2021 [facility] d[facility] Specialist DATE CREATED AUTHOR AUTHOR'S ORGANIZ ATION 12/18/2023 [facility] DATE CREATED AUTHOR AUTHOR'S ORGANIZ ATION 01/11/2024 [facility] DATE CREATED AUTHOR AUTHOR'S ORGANIZ ATION 01/14/2024 [facility] dical Specialists EPIC Care Teams (unrecognized sec tion and content) Team Status: Active Member Role Status Dates NON STAFF Primary Care Provider Active Team Status: Active Member Role Status Dates Heather Georges MD Attending Provider Active Start: September 20, 2023 Team Status: Inactive Member Role Status Dates Jordy L Ly , DO Attending Provider Active St art: November 26, 2023 End: November 26, 2023 NON STAFF Primary Care Provider Active Start: November 26, 2023 End: November 26, 2023 Team Status: Active Member Role Status Dates Massiel Oscar MD Primary Care Provide r Active Team Status: Inactive Member Role Status Dates Massiel Oscar MD Primary Care Provide r Active Start: November 26, 2023 End: November 26, 2023 Jordy Guevara Ly , DO Attending Provider Active St art: November 26, 2023 End: November 26, 2023 Goals (unrecognized section and content) Goals may be documented in a n alternate sectionGoals may be documented in an alternate section FOR RECORDS PERTAINING TO PATIENTS WHO ARE OR HAVE BEEN ENROLLED IN A CHEMICAL DEPENDENCY/SUBSTANCEABUSE PROGRAM, SOME INFORMATION MAY BE OMITTED. This clinical summary was aggregated from multiple sources. Caution should be exercised in using it in the provision of clinical care. This summary normalizes information from multiple sources, and as a consequence, information in this document may materially change the coding, format and clinical context of patient data. In addition, data may be omitted in some cases. CLINICAL DECISIONS SHOULD BE BASED ON THE PRIMARY CLINICAL RECORDS. [facility] [employer]. provides no warranty or guarantee of the accuracy or completeness of information in this document.
[2024-01-16 15:05] LABS: Bilirubin Urine NEGATIVE (NEGATIVE); Blood Urine MODERATE (NEGATIVE); Clarity Urine CLOUDY (CLEAR); Color Urine YELLOW (YELLOW); Glucose Urine UA NEGATIVE (NEGATIVE); Ketones Urine NEGATIVE (NEGATIVE); Leukocyte Esterase Urine LARGE (NEGATIVE); Nitrite Urine NEGATIVE (NEGATIVE); Protein Urine 30 mg/dL (NEG/TRACE); Specific Gravity Urine 1.025 (1.005-1.025)
[2024-01-16 15:18] LABS: Urine Microscopic Indicated YES
[2024-01-16 15:20] LABS: Alanine Aminotransferase 48 U/L (14-59); Albumin Globulin Ratio 0.9; Albumin Level 3.7 g/dL (3.4-5.0); Alkaline Phosphatase 69 U/L (46-116); Anion Gap 12.4; Aspartate Amino Transferase 29 U/L (15-37); BUN Creatinine Ratio 14.9; Bilirubin Total 0.5 mg/dL (0.2-1.0); Calcium 9.5 mg/dL (8.5-10.1); Chloride 103 mmol/L (98-107); Estimated GFR (African America >60 (>=60); Estimated GFR (Non-African Ame >60 (>=60); Globulin 4.2 g/dL; Glucose 111 mg/dL (74-106); Potassium 3.4 mmol/L (3.5-5.1); Sodium 141 mmol/L (136-145); Total Protein 7.9 g/dL (6.4-8.2)
[2024-01-16 15:37] LABS: Bacteria Urine SMALL #/HPF (NONE SEEN); Cast Seen? NONE SEEN #/LPF (NONE SEEN); Mucus Urine NONE SEEN (NONE SEEN); Squamous Epithelial Cell Urine MODERATE #/LPF (NONE/RARE)
[2024-01-16 15:38] LABS: Amorphous Sediment Urine FEW; Crystals Seen? Seen #/HPF (None Seen); Trichomonas Urine SEEN (NONE SEEN); Urine Culture Indicated YES
== END 2024-01-16 14:03 | disposition home or self-care (01) ==
LOC: LAB 14:03
PROVIDERS: PCP Family Medicine
DX: Z01.818 Encounter for other preprocedural examination (principal); Z01.810 Encounter for preprocedural cardiovascular examination; Z01.812 Encounter for preprocedural laboratory examination
CPT/HCPCS: 36415; 80053; 81001; 87086